=== PATIENT | female | born 1960 | race Caucasian/White ===

== ENCOUNTER 2018-05-30 18:21 | Emergency (ER) | payer OTHER ==
[2018-05-30 18:32] LABS: PH,URINE 5.5 (4.5-8); URINE APPEARANCE Cloudy; URINE BILIRUBIN 1+ (NEGATIVE); URINE COLOR Yellow; URINE GLUCOSE (UA) Negative (NEGATIVE); URINE KETONE Trace (NEGATIVE); URINE LEUK ESTERASE TRACE (NEGATIVE); URINE NITRITE Positive (NEGATIVE); URINE PROTEIN 2+ (NEGATIVE); URINE UROBILINOGEN 0.2 (0.2-1.0)
[2018-05-30 18:33] VITALS: BP 112/67; PULSE 100; TEMP 97.9; BMI 25.7
--- NOTE | 2018-05-30 18:41 | PDOC ---
History of Present Illness - General History Source: Patient Exam Limitations: No Limitations <Naima Rawls - Last Filed: 05/30/18 18:44> - General History Source: Patient Exam Limitations: No Limitations - History of Present Illness Initial Comments: 05/30/18 18:58 The patient is a 57 year old female, with a significant PMH of breast cancer twice ( 2006- Stage 4 mastectomy tram flap, chemotherapy and radiation. 2016- Stage 3 another round of chemotherapy and radiation), COPD, diabetes, and hypercholesterolemia, who presents to the emergency department complaining of intermittent hematuria that began approximately one month ago and became more constant in the past week. The patient states she endorses associated symptoms of fatigue, bloating, abdominal cramping and feeling full with eating. The patient denies vaginal bleeding, odor or discharge. Denies blood on underwear. Denies taking Aspirin and Coumadin. Denies chest pain, shortness of breath, headache and dizziness. Denies fever, chills, nausea, vomit, diarrhea and constipation.Denies dysuria and urgency Allergies: buproprion Past surgical history: Mastectomy Social history: Current everyday smoker( 10 cigarettes per day) and occasional alcohol drinker but denies recreational drug use. PCP: David Hester <Poncho Cabrera - Last Filed: 05/30/18 18:59> - General Chief Complaint: Hematuria Stated Complaint: BLOOD IN URINE Time Seen by Provider: 05/30/18 18:30 Past History - Past Medical History Anemia: No Asthma: No Cancer: Yes (Bilateral Breast) Cardiac Disorders: No (sob at times, long time smoker) CVA: No COPD: Yes (sob at times) CHF: No Dementia: No Diabetes: Yes (4 yrs) GI Disorders: No Disorders: No HTN: No Hypercholesterolemia: Yes Liver Disease: No Seizures: No Thyroid Disease: No Other medical history: LYMPHEDEMA OF RIGHT ARM - Surgical History Abdominal Surgery: No Appendectomy: No Cardiac Surgery: No Cholecystectomy: No Lung Surgery: No Neurologic Surgery: No Orthopedic Surgery: No - Suicide/Smoking/Psychosocial Hx Smoking History: Current every day smoker Have you smoked in the past 12 months: Yes Number of Cigarettes Smoked Daily: 10 Information on smoking cessation initiated: Yes 'Breaking Loose' booklet given: 09/10/15 Hx Alcohol Use: Yes (OCCASIONAL) Drug/Substance Use Hx: No Substance Use Type: Alcohol Hx Substance Use Treatment: No <Naima Rawls - Last Filed: 05/30/18 18:44> <Poncho Cabrera - Last Filed: 05/30/18 18:59> - Past Medical History Allergies/Adverse Reactions: Allergies Allergy/AdvReac Type Severity Reaction Status Date / Time buproprion AdvReac Intermediate agitation Uncoded 11/30/16 12:25 Home Medications: Ambulatory Orders metFORMIN HCL [Glucophage] 1,000 mg PO BID tablet 11/30/16 Glipizide [Glipizide ER] 5 mg PO HS 05/30/18 Glipizide [Glipizide ER] 7.5 mg PO DAILY 05/30/18 Meloxicam 15 mg PO DAILY PRN 05/30/18 Review of Systems - Review of Systems Able to Perform ROS?: Yes Comments:: 05/30/18 18:59 GENERAL/CONSTITUTIONAL: No fever or chills. No weakness. HEAD, EYES, EARS, NOSE AND THROAT: No change in vision. No ear pain or discharge. No sore throat. CARDIOVASCULAR: No chest pain or shortness of breath. RESPIRATORY: No cough, wheezing, or hemoptysis. GASTROINTESTINAL: No nausea, vomiting, diarrhea or constipation. GENITOURINARY:+Hematuria. No dysuria and frequency . MUSCULOSKELETAL: No joint or muscle swelling or pain. No neck or back pain. SKIN: No rash NEUROLOGIC: No headache, vertigo, loss of consciousness, or change in strength/ sensation. ENDOCRINE: No increased thirst. No abnormal weight change. HEMATOLOGIC/LYMPHATIC: No anemia, easy bleeding, or history of blood clots. ALLERGIC/IMMUNOLOGIC: No hives or skin allergy. <Poncho Cabrera - Last Filed: 05/30/18 18:59> *Physical Exam - Vital Signs Last Vital Signs Temp Pulse Resp BP Pulse Ox 97.9 F 100 H 16 112/67 98 05/30/18 18:22 05/30/18 18:22 05/30/18 18:22 05/30/18 18:22 05/30/18 18:22 - Physical Exam Comments: 05/30/18 18:39 awake alert lungs clear bilaterally heart rrr no mrg abd soft mild suprapubic ttp. no rebound no guarding. no cva tenderness. ext wwp no edema. no calf tenderness. right arm slighlyt more swollen than left. <Naima Rawls - Last Filed: 05/30/18 18:44> - Vital Signs Last Vital Signs Temp Pulse Resp BP Pulse Ox 97.9 F 100 H 16 112/67 98 05/30/18 18:22 05/30/18 18:22 05/30/18 18:22 05/30/18 18:22 05/30/18 18:22 <Poncho Cabrera - Last Filed: 05/30/18 18:59> Moderate Sedation - Procedure Monitoring Vital Signs: Procedure Monitoring Vital Signs Temperature 97.9 F 05/30/18 18:22 Pulse Rate 100 H 05/30/18 18:22 Respiratory Rate 16 05/30/18 18:22 Blood Pressure 112/67 05/30/18 18:22 O2 Sat by Pulse Oximetry (%) 98 05/30/18 18:22 <Naima Rawls - Last Filed: 05/30/18 18:44> - Procedure Monitoring Vital Signs: Procedure Monitoring Vital Signs Temperature 97.9 F 05/30/18 18:22 Pulse Rate 100 H 05/30/18 18:22 Respiratory Rate 16 05/30/18 18:22 Blood Pressure 112/67 05/30/18 18:22 O2 Sat by Pulse Oximetry (%) 98 05/30/18 18:22 <Poncho Cabrera - Last Filed: 05/30/18 18:59> ED Treatment Course - ADDITIONAL ORDERS Additional order review: Laboratory Results 05/30/18 18:26 Urine Color Yellow Urine Appearance Cloudy Urine pH 5.5 Ur Specific [place] 1.025 Urine Protein 2+ H Urine Glucose (UA) Negative Urine Ketones Trace Urine Blood 3+ H Urine Nitrite Positive Urine Bilirubin 1+ H Urine Urobilinogen 0.2 Ur Leukocyte Esterase Trace H - RADIOLOGY Radiology Studies Ordered: Category Date Time Status SPIRAL- RENAL-STONE CT [CT] Stat CT Scan 05/30/18 18:38 Ordered <Naima Rawls - Last Filed: 05/30/18 18:44> - LABORATORY CBC & Chemistry Diagram: 05/30/18 18:45 05/30/18 18:45 - ADDITIONAL ORDERS Additional order review: Laboratory Results 05/30/18 18:26 Urine Color Yellow Urine Appearance Cloudy Urine pH 5.5 Ur Specific [place] 1.025 Urine Protein 2+ H Urine Glucose (UA) Negative Urine Ketones Trace Urine Blood 3+ H Urine Nitrite Positive Urine Bilirubin 1+ H Urine Urobilinogen 0.2 Ur Leukocyte Esterase Trace H Urine RBC >100 Urine WBC 5-10 Ur Epithelial Cells Few Urine Bacteria 3+ <Poncho Cabrera - Last Filed: 05/30/18 18:59> Medical Decision Making - Medical Decision Making 05/30/18 18:40 57 yo F h/o renal colic , breast ca, here with c/o hematuria. still has metaport. differential infection such as uti, renal cyst, renal colic, anemia. plan ct a/p labs ua urine cultures. 05/30/18 18:[address] pending, signed out to oncoming physician dr joya. <Naima Rawls - Last Filed: 05/30/18 18:44> *DC/Admit/Observation/Transfer <aNima Rawls - Last Filed: 05/30/18 18:44> - Attestations Scribe Attestion: 05/30/18 18:59 Documentation prepared by Poncho Cabrera, acting as medical billing coordinator for Naima Rawls MD. <Poncho Cabrera - Last Filed: 05/30/18 18:59> - Discharge Dispostion Condition at time of disposition: Good - Referrals Referrals: David Hester MD [Primary Care Provider] - - Patient Instructions - Post Discharge Activity
[2018-05-30 18:56] LABS: URINE RBC >100 /hpf (0-3)
[2018-05-30 18:57] LABS: EPI CELLS FEW /HPF; URINE BACTERIA 3+ /hpf (NEGATIVE)
[2018-05-30 19:06] LABS: BASO % 0.4 % (0-2.0); EOS % 1.5 % (0-4.5); HEMATOCRIT 40.3 % (32.4-45.2); MCH 28.9 pg (25.7-33.7); MCHC 32.3 g/dl (32.0-36.0); MEAN CELL VOLUME 89.3 fl (80-96); MEAN PLT VOLUME 6.9 fl (7.5-11.1); MONO % 5.3 % (3.8-10.2); NEUT % 69.8 % (42.8-82.8); PLATELET COUNT 359 K/MM3 (134-434); RBC 4.51 M/mm3 (3.60-5.2); RDW 13.6 % (11.6-15.6); WHITE BLOOD COUNT 13.5 K/mm3 (4.0-10.8)
[2018-05-30 19:10] LABS: ALK PHOS 100 U/L (32-92); ANION GAP 8 MMOL/L (8-16); BLOOD UREA NITROGEN 14 mg/dl (7-18); CHLORIDE 107 mmol/L (98-107); CO2 23 mmol/L (22-28); CREATININE 0.7 mg/dl (0.6-1.3); GLUCOSE,RANDOM 114 mg/dl (74-106); POTASSIUM 3.4 mmol/L (3.5-5.1); SGOT/AST 15 U/L (10-42); SGPT/ALT 13 U/L (10-40); SODIUM 138 mmol/L (136-145); TOT PROT 6.7 g/dl (6.4-8.3)
[2018-05-30 19:13] LABS: BILIRUBIN,TOTAL < 0.3 mg/dl (0.2-1.0)
[2018-05-30] MEDS ORDERED: POTASSIUM CHLORIDE TABS 20 MEQ TABLET.ER (FP) PO ONE ×2 (19:21→19:54)
[2018-05-30 19:33] LABS: ACTIVATED PTT 27.4 SECONDS (25.2-36.5)
[2018-05-30 19:37] LABS: INR 1.14 (0.82-1.09); PROTHROMBIN TIME (PATIENT) 12.7 SEC (10.2-13.0)
[2018-05-30] MEDS ORDERED: CEFTRIAXONE 1,000 MG in DEXTROSE 5%-WATER - 50 ML IVPB STA (20:14)
[2018-05-30] MEDS ORDERED: cefTRIAXone SODIUM 1 GM VIAL ONE (20:21)
--- NOTE | 2018-05-30 20:22 | PDOC ---
*Physical Exam - Vital Signs Last Vital Signs Temp Pulse Resp BP Pulse Ox 97.9 F 100 H 16 112/67 98 05/30/18 18:22 05/30/18 18:22 05/30/18 18:22 05/30/18 18:22 05/30/18 18:22 ED Treatment Course - LABORATORY CBC & Chemistry Diagram: 05/30/18 18:45 05/30/18 18:45 - ADDITIONAL ORDERS Additional order review: Laboratory Results 05/30/18 05/30/18 05/30/18 19:00 18:45 18:26 PT with INR 12.7 INR 1.14 PTT (Actin FS) 27.4 Sodium 138 Potassium 3.4 L Chloride 107 Carbon Dioxide 23 Anion Gap 8 BUN 14 Creatinine 0.7 Creat Clearance w eGFR > 60 Random Glucose 114 H D Calcium 9.0 Total Bilirubin < 0.3 AST 15 ALT 13 Alkaline Phosphatase 100 H Total Protein 6.7 Albumin 4.0 Urine Color Yellow Urine Appearance Cloudy Urine pH 5.5 Ur Specific [place] 1.025 Urine Protein 2+ H Urine Glucose (UA) Negative Urine Ketones Trace Urine Blood 3+ H Urine Nitrite Positive Urine Bilirubin 1+ H Urine Urobilinogen 0.2 Ur Leukocyte Esterase Trace H Urine RBC >100 Urine WBC 5-10 Ur Epithelial Cells Few Urine Bacteria 3+ 05/30/18 18:45 RBC 4.51 MCV 89.3 MCHC 32.3 RDW 13.6 MPV 6.9 L Neutrophils % 69.8 Lymphocytes % 23.0 Monocytes % 5.3 Eosinophils % 1.5 Basophils % 0.4 - Medications Given in the ED: ED Medications Discontinued Medications Generic Name Dose Route Start Last Admin Trade Name Liliane PRN Reason Stop Dose Admin Potassium Chloride 40 meq 05/30/18 19:21 05/30/18 19:55 K-Dur - PO 05/30/18 19:22 40 meq ONCE ONE Administration Progress Note - Progress Note Progress Note: Care of this patient was transferred to me from Dr. Mckenna at 1900 hrs. This is a 57-year-old female who has history significant for breast cancer with recurrence who comes in complaining of not feeling well. Patient said she' s been feeling weak, dizzy, fatigued and approximately 1 minute of intermittent hematuria. Patient denied any fevers, black pain or flank pain. Patient has a workup pending. 20:25 CAT scan was negative for any acute pathology there were a couple of stones in the kidney but no stones in the ureters or urinary collection system Patient otherwise had a very mildly elevated white count with a urinary tract infection. Patient's potassium was slightly low so she is given 40 mEq of K-Dur Patient given ceftriaxone IV for the urinary tract infection. Patient discharged home on Macrobid will follow-up with her primary care doctor *DC/Admit/Observation/Transfer Diagnosis at time of Disposition: Cystitis Hematuria Qualifiers: Hematuria type: unspecified type Qualified Code(s): R31.9 - Hematuria, unspecified - Discharge Dispostion Disposition: HOME Condition at time of disposition: Good Decision to Admit order: No - Prescriptions Prescriptions: Nitrofurantoin Monohyd/M-Cryst [Macrobid -] 100 mg PO BID #14 capsule - Referrals Referrals: David Hester MD [Primary Care Provider] - - Patient Instructions Printed Discharge Instructions: Tips to Help You Stop Smoking Additional Instructions: For the urinary tract infection take Macrobid 1 tablet twice a day for 7 days. Make sure you stay well-hydrated Follow-up with a urologist if you need a urologist call Dr. Jin at [phone]. Return to the emergency department immediately with ANY new, persistent or worsening symptoms. Continue any medications as previously prescribed by your physician. You should follow up with your primary doctor as soon as possible regarding today's emergency department visit. . Please make sure your doctor reviews the results of your emergency evaluation. Thank you for coming to the Emergency Department today for your care. It was a pleasure to see you today. Please note that your evaluation is INCOMPLETE until you follow-up with your doctor. - Post Discharge Activity
== END 2018-05-30 20:53 | disposition home or self-care (01) ==
LOC: FER 18:21 → UNDOADMOB 19:55 → FM/S 19:55 → FER 20:53
DX: N30.91 Cystitis, unspecified with hematuria (principal); E11.9 Type 2 diabetes mellitus without complications; E78.00 Pure hypercholesterolemia, unspecified; J44.9 Chronic obstructive pulmonary disease, unspecified; F17.210 Nicotine dependence, cigarettes, uncomplicated; Z85.3 Personal history of malignant neoplasm of breast; Z90.13 Acquired absence of bilateral breasts and nipples; Z79.1 Long term (current) use of non-steroidal anti-inflammatories (NSAID); Z92.21 Personal history of antineoplastic chemotherapy; Z92.3 Personal history of irradiation
CPT/HCPCS: 36415; 74176; 80053; 81003; 81015; 85025; 85610; 85730; 86850; 86900; 86901; 87086; 99282-25

== ENCOUNTER 2018-09-19 07:46 | Day surgery (SDC) | payer OTHER ==
--- NOTE | 2018-09-16 11:10 | HP ---
Admitting History and Physical - Primary Care Physician PCP: adan - Admission Chief Complaint: bilateral breast cancer hx History of Present Illness: 57 yo female with h/o bilateral breast cancer (right 2005, left 2015) is now presenting for removal of lifeport. History Source: Patient - Past Medical History Cardiovascular: Yes: Hyperlipdemia Endocrine: Yes: Diabetes Mellitus (NIDDM) - Past Surgical History Past Surgical History: Yes: Mastectomy (Right MRM with TRAM 2005 (multiple revisions due to infection and necrosis) Left MRM with saline implant (2015)) - Smoking History Smoking history: Current every day smoker Have you smoked in the past 12 months: Yes Aproximately how many cigarettes per day: 10 - Alcohol/Substance Use Hx Alcohol Use: Yes (OCCASIONAL) Home Medications - Allergies Allergies/Adverse Reactions: Allergies Allergy/AdvReac Type Severity Reaction Status Date / Time No Known Drug Allergies Allergy Verified 05/30/18 19:47 buproprion AdvReac Intermediate agitation Uncoded 11/30/16 12:25 - Home Medications Home Medications: Ambulatory Orders metFORMIN HCL [Glucophage] 1,000 mg PO BID tablet 11/30/16 Glipizide [Glipizide ER] 5 mg PO HS 05/30/18 Glipizide [Glipizide ER] 7.5 mg PO DAILY 05/30/18 Meloxicam 15 mg PO DAILY PRN 05/30/18 Nitrofurantoin Monohyd/M-Cryst [Macrobid -] 100 mg PO BID #14 capsule 05/30/18 Family Disease History - Family Disease History Family Disease History: CA: Grandparent (mat GM gastric ca 56, mat great GM- brain cancer, [facility] great GF-brain cancer) Review of Systems - Review of Systems Constitutional: reports: No Symptoms Cardiovascular: reports: No Symptoms Respiratory: reports: No Symptoms Physical Examination Constitutional: Yes: Well Nourished, Calm Breast(s): Yes: Other (Well healed bilateral chest incisions. No suspicious masses or adenopathy noted bilaterally.) Problem List - Problems (1) Breast cancer, left breast Code(s): C50.912 - MALIGNANT NEOPLASM OF UNSPECIFIED SITE OF LEFT FEMALE BREAST Qualifiers: Breast location: lower outer quadrant of breast Qualified Code(s): C50.512 - Malignant neoplasm of lower-outer quadrant of left female breast (2) Breast cancer, right Code(s): C50.911 - MALIGNANT NEOPLASM OF UNSP SITE OF RIGHT FEMALE BREAST Assessment/Plan Removal of lifeport
[2018-09-17 09:30] VITALS: BMI 24.3
[2018-09-19] MEDS ORDERED: GUM MASTIC/STORAX/MSAL/ALCOHOL 1 DRP DROPSBTL MC ONE (09:21)
[2018-09-19] MEDS ORDERED: LIDOCAINE HCL 1% PRESERVATIVE FREE - 30ML VIAL ONE (09:21)
[2018-09-19] MEDS ORDERED: ONDANSETRON 4 MG/2 ML VIAL IVPUSH PRN ×2 (09:38→10:38)
[2018-09-19] MEDS ORDERED: oxyCODONE HCL 5 MG TABLET PO PRN (09:38)
[2018-09-19] MEDS ORDERED: MIDAZOLAM HCL 2 MG/2 ML SINGLE DOSE VIAL ONE (09:42)
[2018-09-19] MEDS ORDERED: LACTATED RINGERS SOLUTION 1,000 ML IV SCH (09:45)
[2018-09-19] MEDS ORDERED: DEXAMETHASONE SOD PHOSPHATE 4 MG/1 ML VIAL ONE (09:54)
[2018-09-19] MEDS ORDERED: ceFAZolin SODIUM 1 GM VIAL ONE (09:54)
[2018-09-19] MEDS ORDERED: PROPOFOL 20 ML ONE (09:55)
[2018-09-19] MEDS ORDERED: BUPIVACAINE HCL/PF 2.5 MG/ML - 30 ML VIAL IJ ONE (10:14)
[2018-09-19] MEDS ORDERED: KETOROLAC TROMETHAMINE 30 MG/1 ML VIAL IVPUSH PRN (10:38)
[2018-09-19] MEDS ORDERED: DEXTROSE 5%-0.45% SALINE 1,000 ML IV SCH (10:45)
[2018-09-19 11:51] VITALS: TEMP 98.7
[2018-09-19 11:52] VITALS: BP 122/62; PULSE 86
--- NOTE | 2018-09-19 12:57 | OP ---
DATE OF OPERATION: 09/19/2018 PREOPERATIVE DIAGNOSIS: History of bilateral breast cancer. POSTOPERATIVE DIAGNOSIS: History of bilateral breast cancer. PROCEDURE: Removal of left-sided internal jugular single lumen Port-A-Cath. ANESTHESIA: Local with IV sedation. SURGEON: Kurtis Casas MD. MANAGER GREEN: DORENE Miller. COMPLICATIONS: None. INDICATIONS: Briefly, the patient is a 57-year-old white female chronic smoker who initially was diagnosed with right breast cancer in 2005 and underwent the right breast modified radical mastectomy TRAM reconstruction for a 2.5-cm infiltrating ductal cancer with 8 out of 26 positive nodes and she underwent chemotherapy and radiation over the right TRAM. She developed ischemia over the TRAM and right arm lymphedema. She eventually required revision of the TRAM reconstruction in 2009. She then developed a left breast lower inner quadrant breast cancer in August 2015 which again was an infiltrating ductal cancer which was ER W[place] positive and HER2/jahaira negative and underwent the left breast mastectomy and axial lymph node dissection for a 6-cm mixed lobular cancer with 1 out of 12 positive nodes with a micrometastasis. She again underwent chemotherapy now through a left-sided single lumen port and underwent radiation to the left chest wall and was placed on Arimidex. She is doing well and is NAD and comes in now for removal of her left-sided single lumen internal jugular Port-A-Cath. The patient was brought in for the procedure on September 19, 2018. In the holding area sites verification was made and an informed consent was obtained. OPERATIVE PROCEDURE: The patient was brought into the operating room and laid on the OR table in the supine position. No antibiotics were given given the small nature of the excision. The upper left chest wall was sterilely prepped and draped in the usual fashion. She was given IV sedation. A time-out was performed. When she was properly anesthetized 1% lidocaine was given directly over the Port-A-Cath chamber and the previous incision was reopened and the single lumen Port-A-Cath chamber was completely excised intact and sent to pathology. The capsule was also removed. Hemostasis was achieved using electrocautery. The subcutaneous tissue was then reapproximated using a 3-0 Vicryl suture. The skin was closed using interrupted 3-0 deep dermal Vicryl suture and a running 4-0 subcuticular Biosyn suture. Dermabond was placed over the wound with a sterile dressing placed over this. The patient tolerated the procedure well without difficulty, was awake and alert at the end of the procedure and brought back to Ambulatory Surgery postoperatively where she will be discharged home the same day once discharge criteria are met. Estimated blood loss is minimal. All sponge and needle counts were correct at the end of the case. The patient will follow up in the office in 1 week for a formal wound evaluation. KURTIS CASAS M.D. [id number]
--- NOTE | 2018-09-23 11:09 | PATH ---
Surgical Pathology Report Patient Name: NATHEN HAUSER Med. Rec. #: [id number] /Age/Gender: 1960 (Age: 57) / F Account: [id number] Location: [facility] Taken: 09/19/2018 Received: 09/19/2018 Reported: 09/23/2018 Physicians: David Casas M.D. Specimen(s) Received PORTACAT Clinical History History of bilateral breast cancer Final Diagnosis MATERIAL CONTROL ANALYST, REMOVAL: PORT-A-CATH (GROSS ONLY). Electronically Signed Marcus Rojas M.D. Gross Description Received fresh labeled "Port-A-Cath," is a 2.6 x 2.3 x 1.4 cm purple, triangular device, consistent with a chris cath. The specimen displays a 23 cm in length portion of white tubing extending from one aspect. No soft tissue is present. No sections are submitted, gross only. /09/20/2018 saudi/09/20/2018 AJ[facility] Staging Form PORTACATH:
== END 2018-09-19 11:20 | disposition home or self-care (01) ==
LOC: FASU 07:46
PROVIDERS: ATTEND Surgery Surgical Oncology
PROC: 05PY33Z Removal of Infusion Device from Upper Vein, Percutaneous Approach (ICD-10-PCS; 2018-09-19)
PROC: 0JPT3WZ Removal of Totally Implantable Vascular Access Device from Trunk Subcutaneous Tissue and Fascia, Percutaneous Approach (ICD-10-PCS; principal; 2018-09-19 10:05)
DX: Z45.2 Encounter for adjustment and management of vascular access device (principal); Z85.3 Personal history of malignant neoplasm of breast; F17.210 Nicotine dependence, cigarettes, uncomplicated; E11.9 Type 2 diabetes mellitus without complications; E78.5 Hyperlipidemia, unspecified; Z90.13 Acquired absence of bilateral breasts and nipples
CPT/HCPCS: 82962; 88300-TC